=== PATIENT | male | born 1960 | race Caucasian/White ===

== ENCOUNTER → 2016-10-27 | Outpatient (CLI) | payer BC | END | disposition home or self-care (01) | LOC: CT 18:34 | DX: K63.89 Other specified diseases of intestine (principal); N32.89 Other specified disorders of bladder; N28.89 Other specified disorders of kidney and ureter; R93.5 Abnormal findings on diagnostic imaging of other abdominal regions, including retroperitoneum | CPT/HCPCS: 74177 ==